=== PATIENT | male | born 1955 | race Caucasian/White ===

== ENCOUNTER 2016-07-07 08:50 | Day surgery (SDC) | payer OTHER ==
[~2016-07-07] VITALS: Ht 170.2 cm; Wt 80.2 kg
[2016-07-07 09:06] VITALS: Ht 170.2 cm; Wt 80.2 kg
[2016-07-07 09:27] VITALS: BP 146/78; PULSE 66; RESP 18
[2016-07-07] MEDS ORDERED: FENTAnyl 50 MCG/ML VIAL ONE (10:15)
[2016-07-07] MEDS ORDERED: MIDAZOLAM 1 MG/ML 2 ML INJ ONE ×2 (10:15)
[2016-07-07 10:20] VITALS: BP 160/86; PULSE 64; RESP 21
--- NOTE | 2016-07-07 13:31 | GILP ---
DATE OF PROCEDURE: 07/07/2016 NAME OF PROCEDURE: Colonoscopy and polypectomy. SURGEON: Dandre Baptiste MD PREOPERATIVE DIAGNOSIS: A patient presenting with no gastrointestinal complaints. This is a screen ing colonoscopy to rule out colon polyps. POSTOPERATIVE DIAGNOSES: A 1 cm polyp on a small stalk noted in the mid transverse colon. Another polyp measuring 1 cm in diameter located on a small stalk located in the mid transverse colon. The se polyps were removed with help of a hot snare. DESCRIPTION OF PROCEDURE: After the informed written consent was obtained, the patient was asked to lie on the left lateral side, 3 mg Versed and 75 mcg of fentanyl was given as intravenous anesthesi a. When the patient became somnolent, the Olympus video colonoscope was introduced into the rectum and scope was advanced all the way to the cecum. There is a polyp measuring 1 cm in diameter located on a small stalk in the mid transverse colon. This was removed with the hot snare, the polyp was retr ieved. Another 1 cm polyp noted on a small stalk in the mid transverse colon. This was also removed with t he help of the hot snare. Rest of the colon appeared perfectly normal. Terminal ileum appeared nor mal. Endoscope at this time was withdrawn. On the way out, no additional abnormalities detected. No hemorrhoids were noted and the procedure was terminated. PLAN: Recommend a repeat colonoscopy in 3 years, and also wait for the pathology report. Dictated By: DANDRE BAPTISTE MD NC/NTS Conf#: [id number] DID#: [id number] CC: BRITTNEY HENNESSY MD; DANDRE BAPTISTE MD;*[facility]*
== END 2016-07-07 15:17 | disposition home or self-care (01) ==
LOC: GIL 08:50
PROVIDERS: ATTEND Internal Medicine Gastroenterology
DX: Z12.11 Encounter for screening for malignant neoplasm of colon (principal); D12.3 Benign neoplasm of transverse colon; Z87.891 Personal history of nicotine dependence; Z80.1 Family history of malignant neoplasm of trachea, bronchus and lung
CPT/HCPCS: 45385; 88305; J2250; J3010; Z7610